=== PATIENT | female | born 1980 | race Caucasian/White ===

== ENCOUNTER 2024-02-11 09:19 | Outpatient (CLI) | payer OTHER, SELFPAY | END 2024-02-11 09:20 | disposition home or self-care (01) | PROVIDERS: Visit Provider Physician Assistant | DX: R23.2 Flushing (principal); N39.0 Urinary tract infection, site not specified; B96.20 Unspecified Escherichia coli [E. coli] as the cause of diseases classified elsewhere | CPT/HCPCS: 84443; 87086; 87186 ==

== ENCOUNTER 2024-02-25 10:52 | Outpatient (CLI) | payer OTHER, SELFPAY | END 2024-02-25 10:53 | disposition home or self-care (01) | LOC: NFLDREF 02-29 02:43 | PROVIDERS: PCP Nurse Practitioner Family; Referring Provider Nurse Practitioner Family; Visit Provider Nurse Practitioner Family | DX: M54.50 Low back pain, unspecified (principal) | CPT/HCPCS: 87086 ==

== ENCOUNTER 2024-07-09 06:22 | Outpatient (CLI) | payer OTHER, SELFPAY | END 2024-07-09 06:23 | disposition home or self-care (01) | PROVIDERS: PCP Nurse Practitioner Family; Visit Provider Nurse Practitioner Family | DX: E11.69 Type 2 diabetes mellitus with other specified complication (principal); E66.01 Morbid (severe) obesity due to excess calories; Z13.6 Encounter for screening for cardiovascular disorders; Z13.29 Encounter for screening for other suspected endocrine disorder; Z13.9 Encounter for screening, unspecified | CPT/HCPCS: 80053; 80061; 82043; 82570; 82607; 84443 ==

== ENCOUNTER 2025-03-18 11:50 | Outpatient (CLI) | payer OTHER, SELFPAY ==
[2025-03-20 01:15] LABS: HPV Source Cervix
[2025-03-31 16:08] LABS: Pap Test Reviewed by Pathologi Done; Pap Test Screened Manually Done
== END 2025-03-18 11:51 | disposition home or self-care (01) ==
PROVIDERS: PCP Nurse Practitioner Family; Visit Provider Physician Assistant
DX: Z12.4 Encounter for screening for malignant neoplasm of cervix (principal)
CPT/HCPCS: 87624; 87625; 88141; 88142; 88175